=== PATIENT | female | born 1950 | race Caucasian/White ===

== ENCOUNTER 2017-01-16 13:03 | Day surgery (SDC) | payer OTHER ==
[2017-01-16] MEDS ORDERED: ASPIRIN EC 325 MG TAB PO ONE (13:12)
[2017-01-16] MEDS ORDERED: NS 1,000 ML IV ONE (13:12)
[2017-01-16] MEDS ORDERED: FAMOTIDINE 20 MG TAB PO ONE (13:12)
[2017-01-16] MEDS ORDERED: diphenhydrAMINE 25 MG CAP PO ONE (13:12)
[2017-01-16] MEDS ORDERED: DIAZEPAM 5 MG TAB PO ONE (13:12)
[2017-01-16] MEDS ORDERED: fentaNYL 100 MCG/2 ML INJ IVP ONE (13:14)
[2017-01-16] MEDS ORDERED: MIDAZOLAM 2 MG/2 ML VIAL IVP ONE (13:14)
[2017-01-16] MEDS ORDERED: BENZOCAINE UNIT DOSE SPRAY HURRICAINE MM ONE (13:14)
--- NOTE | 2017-01-16 13:37 | CPEKG ---
Heart Rate: 66 RR Interval: 909 P-R Interval: 208 QRSD Interval: 106 QT Interval: 440 QTC Interval: 461 P [place]: 68 QRS [place]: -19 T Wave [place]: 80 EKG Severity - ABNORMAL ECG - EKG Impression: SINUS RHYTHM EKG Impression: PROBABLE LVH WITH SECONDARY REPOL ABNRM Electronically Signed By: Leonidas Razo 16-Jan-2017 17:34:07
[2017-01-16 13:58] LABS: PLATELET COUNT 229 10^3/uL (150-400)
[2017-01-16 14:03] LABS: INR 1.03 (0.83-1.16); PROTIME(PATIENT) 13.4 SEC (12.0-15.0)
--- NOTE | 2017-01-16 14:21 | PDPROPOC ---
Sedation Plan of Care Sedation Plan of Care: vital signs stable, mental status noted, patient educated of risks, benefits, alternatives, patient can tolerate sedation ASA Classification: ASA 1 Planned drugs: fentanyl, midazolam Mallampati Score: Class 1 Mallampati Reference Image: Patient passed 3-3-2 rule?: Yes
--- NOTE | 2017-01-16 14:21 | PDHPUP ---
History & Physical Update H&P update statement: This history and physical update is based on an assessment of the patient which was completed after admission or registration (within 24 hours), but prior to the surgery/procedure. H&P update: H&P reviewed & patient examined, no change in patient's condition since H&P completed
[2017-01-16] MEDS ORDERED: ATROPINE SULFATE 1 MG/10 ML SYR ONE (14:37)
[2017-01-16] MEDS ORDERED: fentaNYL 100 MCG/2 ML INJ ONE ×2 (14:51→15:32)
[2017-01-16] MEDS ORDERED: LIDOCAINE 1% 300 MG/30 ML SDV ONE (15:32)
[2017-01-16] MEDS ORDERED: MIDAZOLAM 2 MG/2 ML VIAL ONE (15:33)
[2017-01-16] MEDS ORDERED: HEPARIN 10,000 UNIT/10 ML MDV ONE (15:33)
[2017-01-16] MEDS ORDERED: IOPAMIDOL (ISOVUE-370) 150 ML BTL IV ONE (15:33)
[2017-01-16] MEDS ORDERED: VERAPAMIL 5 MG/2 ML VIAL ONE (15:33)
[2017-01-16] MEDS ORDERED: ONDANSETRON 4 MG/2 ML VIAL IVP PRN (17:42)
[2017-01-16] MEDS ORDERED: ATROPINE SULFATE 1 MG/10 ML SYR IVP PRN (17:42)
--- NOTE | 2017-01-16 17:47 | PDDXCAT ---
Diagnostic Cath Note - . Date: 01/16/17 Speech Pathologist Assistant: Clara Indication: other (Hypertrophic cardiomyopathy. [place] [employer] functional class 3 exertional dyspnea. Plans for referral to cardiothoracic surgery for septal myectomy.) - Procedure Access: right wrist Procedure: left heart catheterization, coronary angiography, left ventriculogram , right heart catheterization - Materials Left Heart Cath size: 5F Left Heart Cath materials: JL3.5, JR4.0 Right Heart Cath size: 5F - Findings-Left Heart Catheterization LM: Normal. Trifurcate into the LAD, ramus intermedius and circumflex system. LAD: 3 diagonal branches. Normal. LCX: 2 small obtuse marginal branches. Normal. RCA: Dominant. The PDA and 2 posterolateral branches are identified. Normal. Ramus: Normal. LVEF: Greater than 70%. Normal wall motion. - Findings-Right Heart Catheterization RA: 7 mm Hg. RV: 45/2/9 mmHg. PA: 44/23/32 mmHg. PAOP: 18 mmHg AO: 131/63/92 mmHg. Left ventricular pressure 98/20 3/33 mmHg. CO: 6.1 liters/minute. CI: 3.32 liters/minute per meter squared. Complications: None. Estimated blood loss: <50ml Closure method: TR Band Assessment: 1. Angiographically normal epicardial coronary arteries. 2. Mildly elevated filling pressures with moderate pulmonary arterial hypertension. 3. Hyperdynamic left ventricular systolic function the patient with known hypertrophic cardiomyopathy. Plan: The patient will be referred to cardiothoracic surgery for consideration of septal myectomy. Intervention: None.
== END 2017-01-16 20:15 | disposition home or self-care (01) ==
LOC: FCATH 13:03
PROVIDERS: ATTEND Internal Medicine Cardiovascular Disease
DX: I42.2 Other hypertrophic cardiomyopathy (principal); R06.09 Other forms of dyspnea; I27.20 Pulmonary hypertension, unspecified; I10 Essential (primary) hypertension; E11.9 Type 2 diabetes mellitus without complications; Z82.49 Family history of ischemic heart disease and other diseases of the circulatory system; Z88.0 Allergy status to penicillin
CPT/HCPCS: 93005; 93460; C1769; J0461; J1644; J2250; J3010; Q9967

== ENCOUNTER → 2017-03-20 | Outpatient (CLI) | payer OTHER ==
[~2017-03-20] MED LIST: GADOBUTROL 10 ML VIAL IVP ONE
== END ==
LOC: FIMAGING 08:10
PROVIDERS: ATTEND Thoracic Surgery (Cardiothoracic Vascular Surgery)
DX: I42.1 Obstructive hypertrophic cardiomyopathy (principal)
CPT/HCPCS: 75561; A9585

== ENCOUNTER 2017-04-03 10:09 | Inpatient (IN) | payer OTHER ==
[~2017-04-03 10:09] MED LIST changes: +CITRATE DEXTROSE SOLN 500 ML BAG MISC ONE; -GADOBUTROL 10 ML VIAL IVP ONE; +INSULIN REGULAR HUMAN 100 UNIT in NS 100 ML IV ONE; +LIDOCAINE 1% 5 ML SDV ID PRN; +MANNITOL 25% 12.5 GM/50 ML VIAL IVP ONE; +NOREPINEPHRINE BITARTRATE 16 MG in NS 250 ML IV ONE; +PHENYLEPHRINE HCL 50 MG in NS 250 ML IV ONE; +SODIUM BICARBONATE 20 MEQ, LIDOCAINE 1% 10 ML in NORMOSOL-R 1,000 ML MISC ONE; +TRANEXAMIC ACID 1,000 MG in NS 100 ML IV ONE; +VANCOMYCIN 1 GM in NS 250 ML IV ONE; +VANCOMYCIN PHARMACY TO DOSE MISC ONE
--- NOTE | 2017-04-03 10:18 | PDGENHP ---
History and Physical - Chief Complaint HOCM, mod-severe MR - History of Present Illness 66F with known HOCM and mod-severe MR here for elective septal myectomy with possible MV repair vs. replacement. Pt c/o MARR. Denies CP or LE edema. History Information - Allergies/Home Medication List Allergies/Adverse Reactions: Penicillins Allergy (Mild, Verified 03/04/17 13:49) Rash antihistamines Allergy (Unknown, Uncoded 01/16/17 14:23) Home Medications: Diltiazem HCl [Cartia Xt] 120 mg PO BID 01/09/17 [Last Taken Unknown] Herbals/Supplements -Info Only 1 ea PO DAILY 01/09/17 [Last Taken Unknown] Metal Spray Operator Thyroid 90 mg PO DAILY@06 01/09/17 [Last Taken Unknown] glipiZIDE [Glipizide Xl] 5 mg PO DAILY 01/09/17 [Last Taken Unknown] metFORMIN SR [Glucophage XR 750 mg (*)] 750 mg PO DAILY 01/09/17 [Last Taken Unknown] Albuterol [Proventil Inhaler HFA (*)] 1 - 2 puffs IH DAILY PRN 02/27/17 [Last Taken Unknown] Carvedilol [Coreg (*)] 6.25 mg PO BIDMEAL 02/27/17 [Last Taken Unknown] Ranolazine [RANEXA 500mg (RX)] 500 mg PO BID 02/27/17 [Last Taken Unknown] I have personally reviewed and updated: medical history, social history, surgical history - Past Medical History asthma, diabetes type 2, hypertension - Surgical History Reports: thyroid surgery - Social History Smoking Status: Never smoked Alcohol Use: Occasionally Drug Use: None Review of Systems Review of Systems: ROS: 10pt was reviewed & negative except for what was stated in HPI & below Physical Exam Physical Exam: Constitutional: no apparent distress, appears nourished, not in pain, obese Eyes: anicteric sclera Ears, Nose, Mouth, Throat: moist mucous membranes, hearing normal, ears appear normal, no oral mucosal ulcers Cardiovascular: regular rate and rhythym Respiratory: no respiratory distress Gastrointestinal: soft, non-tender abdomen Skin: warm, normal color Musculoskeletal: full muscle strength Neurologic: AAOx3 Psychiatric: interacting appropriately, not anxious, not encephalopathic, thought process linear Lab Data & Imaging Review Patient ABO/Rh A NEGATIVE 04/02/17 12:25 Antibody Screen NEGATIVE 04/02/17 12:25 All labs pre-op labs reviewed without significant abnormalities. Imaging Review: 11/30/16 ECHO: mod asymmetric septal hypertrophy, mod-severe MR 01/16/17 LHC: normal coronary arteries, mod pulmonary HTN, EF > 70% 03/20/17 cardiac MRI: findings consistent with HOCM Visualized and Interpreted Chest x-ray results: Yes Chest X-Ray results: no infiltrate Visualized and Interpreted EKG results: Yes EKG Interpretation: Positive for: LVH, normal sinsus rhythm Assessment & Plan Assessment: 66F HOCM/mod-severe MR Plan: For septal myectomy, +/- MVR
[2017-04-03] MEDS ORDERED: ALBUMIN 5% 250 ML BOTTLE IV ONE (10:47)
[2017-04-03] MEDS ORDERED: CALCIUM CHLORIDE 1 GM/10 ML INJ ONE ×3 (10:47→21:00)
[2017-04-03] MEDS ORDERED: LIDOCAINE 2% 100 MG/5 ML SYR ONE ×2 (10:47→11:55)
[2017-04-03] MEDS ORDERED: MAGNESIUM SULFATE 1 GM/2 ML VIAL ONE (10:48)
[2017-04-03] MEDS ORDERED: HEPARIN 10,000 UNIT/10 ML MDV (1,000 UNIT/ML) ONE ×2 (10:48→10:51)
[2017-04-03] MEDS ORDERED: methylPREDNISolone SOD SUCC 1 GM/8 ML VIAL ONE (10:48)
[2017-04-03] MEDS ORDERED: CITRATE DEXTROSE SOLN 500 ML BAG ONE (10:48)
[2017-04-03] MEDS ORDERED: AMIODARONE HCL 150 MG/3 ML VIAL ONE ×2 (10:48→10:51)
[2017-04-03] MEDS ORDERED: PROTAMINE SULFATE 50 MG/5 ML VIAL IVP ONE (10:49)
[2017-04-03] MEDS ORDERED: MILRINONE/DEXTROSE/100 ML BAG IV ONE (10:50)
[2017-04-03] MEDS ORDERED: NA BICARBONATE 50 MEQ/50 ML VIAL ONE (10:50)
[2017-04-03] MEDS ORDERED: niCARdipine/NACL/200 ML BAG IV ONE (10:51)
[2017-04-03] MEDS ORDERED: DOPamine/DEXTROSE/250 ML BAG IV ONE (10:51)
[2017-04-03] MEDS ORDERED: ADENOSINE 6 MG/2 ML VIAL ONE (10:51)
[2017-04-03] MEDS ORDERED: ceFAZolin 1 GM VIAL ONE (10:52)
[2017-04-03] MEDS: MUPIROCIN 2% 22 GM OINT NS SCH ×2 (11:25→20:29)
[2017-04-03] MEDS ORDERED: MIDAZOLAM 2 MG/2 ML VIAL IVP ONE (11:45)
[2017-04-03] MEDS ORDERED: MIDAZOLAM 2 MG/2 ML VIAL ONE ×2 (11:50→11:54)
[2017-04-03] MEDS ORDERED: PROPOFOL/EMULSION 500 MG/50 ML BOTTLE IV ONE ×2 (11:54→14:40)
[2017-04-03] MEDS ORDERED: REMIFENTANIL HCL 1 MG VIAL ONE (11:54)
[2017-04-03] MEDS ORDERED: fentaNYL 100 MCG/2 ML INJ ONE (11:54)
[2017-04-03] MEDS ORDERED: PHENYLEPHRINE HCL 100 MCG/ML SYR ONE (11:55)
[2017-04-03] MEDS ORDERED: ROCURONIUM 100 MG/10 ML VIAL ONE ×2 (11:55)
[2017-04-03] MEDS ORDERED: DEXAMETHASONE 4 MG/ML VIAL ONE ×2 (11:55)
[2017-04-03] MEDS ORDERED: ONDANSETRON 4 MG/2 ML VIAL ONE (11:55)
[2017-04-03] MEDS ORDERED: fentaNYL 250 MCG/5 ML INJ ONE (12:41)
--- NOTE | 2017-04-03 13:21 | PDANEPAE ---
ANE History of Present Illness septal hypertrophy s/f septal resection and possible MV Repair ANE Past Medical History - Cardiovascular History Hx Hypertension: Yes Hx Arrhythmias: No Hx Chest Pain: No Hx Coronary Artery / Peripheral Vascular Disease: No Hx CHF / Valvular Disease: Yes Hx Palpitations: No Cardiovascular History Comment: hypertrophic cardiomyopathy. Exertional dyspnea. "fluttering" - Pulmonary History Hx COPD: No Hx Asthma/Reactive Airway Disease: No Hx Recent Upper Respiratory Infection: No Hx Oxygen in Use at Home: No Hx Sleep Apnea: No Sleep Apnea Screening Result - Last Documented: Positive Pulmonary History Comment: Albuterol inhaler-use this when difficulty breathing- re-fill 1x /yr - Neurologic History Hx Cerebrovascular Accident: No Hx Seizures: No Hx Dementia: No - Endocrine History Hx Diabetes: Yes Endocrine History Comment: NIDDM -type 2. Blood sugar runs higher than normal. - Renal History Hx Renal Disorders: No - Liver History Hx Hepatic Disorders: No - Neurological & Psychiatric Hx Hx Neurological and Psychiatric Disorders: Yes Neurological / Psychiatric History Comment: sees chiropractor 1x/wk. No problems with spine. - Cancer History Hx Cancer: No - Congenital Disorder History Hx Congenital Disorders: No - GI History Hx Gastrointestinal Disorders: No - Other Health History Other Health History: skin:eczema-hands, back of hairlin (neck) palms. - Chronic Pain History Chronic Pain: No - Surgical History Prior Surgeries: L arm fx 2014. cardiac cath 01-16-17. thyroidectomy age 14. uterine fibroid embolization ANE Review of Systems Review of Systems: - Exercise capacity METS (RN): 3 METS ANE Patient History - Allergies Allergies/Adverse Reactions: Penicillins Allergy (Mild, Verified 03/04/17 13:49) Rash ranolazine [From Ranexa] Allergy (Verified 04/03/17 11:37) DIZZINESS/NAUSEA antihistamines Allergy (Unknown, Uncoded 01/16/17 14:23) - Home Medications Home Medications: Diltiazem HCl [Cartia Xt] 120 mg PO BID 01/09/17 [Last Taken 04/02/17 22:00] Herbals/Supplements -Info Only 1 ea PO DAILY 01/09/17 [Last Taken 03/27/17] Tafe Lecturer Thyroid 90 mg PO DAILY@06 01/09/17 [Last Taken 04/02/17 08:00] glipiZIDE [Glipizide Xl] 5 mg PO DAILY 01/09/17 [Last Taken 04/02/17 10:00] metFORMIN SR [Glucophage XR 750 mg (*)] 750 mg PO DAILY 01/09/17 [Last Taken ] Albuterol [Proventil Inhaler HFA (*)] 1 - 2 puffs IH DAILY PRN 02/27/17 [Last Taken 04/01/17] Carvedilol [Coreg (*)] 6.25 mg PO BIDMEAL 02/27/17 [Last Taken 04/02/17 22:00] - NPO status NPO Status: no food or drink >8 hours NPO Since - Liquids (Date): 04/02/17 NPO Since - Liquids (Time): 22:30 NPO Since - Solids (Date): 04/02/17 NPO Since - Solids (Time): 19:00 - Anes Hx Anes Hx: slow to awaken from anesthesia (low BP as well) - Smoking Hx Smoking Status: Never smoked - Alcohol Use Alcohol Use: Occasionally ANE Labs/Vital Signs - Labs - CBC WBC: reviewed and okay - Vital Signs Blood Pressure: 166/85 Heart Rate: 64 Respiratory Rate: 20 O2 Sat (%): 96 Height: 166.37 cm Weight: 75.75 kg ANE Physical Exam - Airway Neck exam: FROM Mallampati Score: Class 2 Mouth exam: normal dental/mouth exam - Pulmonary Pulmonary: no respiratory distress - Cardiovascular Cardiovascular: regular rate and rhythym - ASA Status ASA Status: III ANE Anesthesia Plan Anesthesia Plan: general endotracheal anesthesia Lines/Monitors: arterial line (by CTS), central line, JENNY Urgent/Emergent Case: Tawanda lerma completed preop but documented later for safe timely pt care (done pre-op but didnt save, redoing it now)
[2017-04-03] MEDS ORDERED: MINERAL OIL 10 ML VIAL ONE (14:21)
[2017-04-03] MEDS ORDERED: DEXMEDETOMIDINE HCL 400 MCG in NS 100 ML IV SCH (14:30)
[2017-04-03] MEDS ORDERED: DEXMEDETOMIDINE/NS 4MCG/ML 50 ML BTL IV ONE (14:57)
[2017-04-03] MEDS ORDERED: SUGAMMADEX SODIUM 200 MG/2 ML VIAL IVP ONE (16:07)
[2017-04-03] MEDS ORDERED: METOCLOPRAMIDE 10 MG/2 ML VIAL IVP PRN (16:21)
[2017-04-03] MEDS ORDERED: ACETAMINOPHEN 650 MG SUPP PR PRN (16:21)
[2017-04-03] MEDS ORDERED: ALBUMIN 5% 250 ML IV PRN (16:21)
[2017-04-03] MEDS ORDERED: MAGNESIUM HYDROXIDE 30 ML UDCUP PO PRN (16:21)
[2017-04-03] MEDS ORDERED: MAGNESIUM SULF 2 GM/WATER 50 ML IV ONE (16:21)
[2017-04-03] MEDS ORDERED: MEPERIDINE 25 MG/ML SYR IVP PRN (16:21)
[2017-04-03] MEDS ORDERED: D50W 25 GM/50 ML SYR IVP PRN (16:21)
[2017-04-03] MEDS ORDERED: CEPACOL LOZENGE PO PRN (16:21)
[2017-04-03] MEDS ORDERED: ACETAMINOPHEN 325 MG TAB PO PRN (16:21)
[2017-04-03] MEDS ORDERED: BISACODYL 10 MG SUPP PR PRN (16:21)
[2017-04-03] MEDS ORDERED: POTASSIUM Cl (KCl) 50 ML IV PRN (16:21)
[2017-04-03] MEDS ORDERED: SODIUM CL NASAL 45 ML BTL EACHNARE PRN (16:21)
[2017-04-03] MEDS ORDERED: POLYETHYLENE GLYCOL 3350 17 GM PKT PO PRN (16:21)
[2017-04-03] MEDS ORDERED: ONDANSETRON 4 MG/2 ML VIAL IVP PRN (16:21)
[2017-04-03] MEDS ORDERED: LACTULOSE 20 GM/30 ML UDCUP PO PRN (16:21)
[2017-04-03] MEDS ORDERED: ONDANSETRON DISINTEGRATING 4 MG TAB PO PRN (16:21)
[2017-04-03] MEDS ORDERED: PANTOPRAZOLE SODIUM 40 MG VIAL IVP ONE (16:21)
[2017-04-03] MEDS ORDERED: IPRATROPIUM/ALBUTEROL 3 ML DEYVIAL IH PRN (16:28)
[2017-04-03] MEDS ORDERED: INSULIN REGULAR HUMAN 100 UNIT in NS 100 ML IV SCH (16:30)
[2017-04-03] MEDS ORDERED: NS 1,000 ML IV SCH (16:30)
[2017-04-03] MEDS: KETOROLAC 15 MG/1 ML SDV IVP SCH ×2 (17:25→23:23)
--- NOTE | 2017-04-03 19:09 | POSTANESTH ---
Post Anesthetic Evaluation Cardiovascular Status: Normal, Stable Respiratory Status: Normal, Stable Level of Consciousness/Mental Status: Can Participate in Eval Pain Control: Inadeq, Add Tx Required Nausea/Vomiting Control: Adequate, Prn Tx Ordered Complications Possibly Related to Anesthesia: None Noted
[2017-04-03] MEDS: fentaNYL 100 MCG/2 ML INJ IVP PRN ×2 (20:29→23:14)
[2017-04-03] MEDS: VANCOMYCIN HCL/NORMAL SALINE 250 ML IV SCH (20:29)
[2017-04-03] MEDS: niCARdipine/NACL 200 ML IV SCH (23:23)
[2017-04-03] MEDS: SENNOSIDES/DOCUSATE SODIUM TAB PO SCH (23:55)
[2017-04-04] MEDS: niCARdipine/NACL 200 ML IV SCH ×2 (03:25→08:40)
[2017-04-04] MEDS: fentaNYL 100 MCG/2 ML INJ IVP PRN (04:11)
[2017-04-04 05:11] LABS: PLATELET COUNT 143 10^3/uL (150-400)
[2017-04-04] MEDS: HEPARIN 5,000 UNIT/0.5 ML SYR SC SCH ×3 (05:54→22:15)
[2017-04-04] MEDS: KETOROLAC 15 MG/1 ML SDV IVP SCH ×3 (05:54→18:18)
[2017-04-04] MEDS: HYDROCODONE/APAP 5/325 TAB PO PRN ×4 (06:22→20:31)
--- NOTE | 2017-04-04 06:47 | SOAPPROG ---
SOAP Progress Note Assessment/Plan: POD #1: Transaortic septal myectomy, AtriClip MARITZA HOCM s/p septal myectomy - AL/FC out and CTs to bulb suction - PW to be connected set to VVI @ 50 - CCB/Beta-kim restarted - SCDs/heparin SQ for VT prophylaxis - PT for ambulation Acute blood loss anemia - Stable without the need for BP transfusions DM 2 (A1c 7.6) - Consistent carb diet ordered - Will transition insuln gtt to sliding scale with slow reintroduction of oral antihyperglycemics as tolerated Subjective: Painful when breathing. Objective: Vital Signs Temp Pulse Resp BP Pulse Ox 37.5 C 81 12 146/59 H 92 04/04/17 04:59 04/04/17 06:00 04/04/17 06:00 04/04/17 06:00 04/04/17 06:00 Laboratory Results 04/04/17 04:07 04/04/17 04:07 04/03/17 04/04/17 04/05/17 05:59 05:59 05:59 Intake Total 1246.1 Output Total 1548 105 Balance -301.9 -105 Physical Exam - Physical Exam General Appearance: WD/WN, alert, no apparent distress, obese EENT: No scleral icterus (R), No scleral icterus (L) Neck: normal inspection Respiratory: No respiratory distress Cardiac/Chest: regular rate, rhythm Abdomen: non-tender, soft, No distended Skin: normal color, warm/dry Extremities: No pedal edema Neuro/Psych: no motor/sensory deficits, alert, normal mood/affect, oriented x 3 ICD10 Worksheet Patient Problems: Problems Problem Status Onset Acute blood loss anemia Acute S/P ventricular septal myectomy Acute HOCM (hypertrophic obstructive cardiomyopathy) Chronic
[2017-04-04] MEDS ORDERED: traMADol 50 MG TAB PO PRN (07:01)
[2017-04-04] MEDS ORDERED: oxyCODONE IR 5 MG TAB PO PRN (07:01)
[2017-04-04] MEDS: ASPIRIN 81 MG CHEWABLE TAB PO SCH (08:40)
[2017-04-04] MEDS: PANTOPRAZOLE SODIUM 40 MG TAB PO SCH (08:40)
[2017-04-04] MEDS: SENNOSIDES/DOCUSATE SODIUM TAB PO SCH ×2 (08:41→20:31)
[2017-04-04] MEDS: MUPIROCIN 2% 22 GM OINT NS SCH ×2 (08:48→20:31)
[2017-04-04] MEDS: VANCOMYCIN HCL/NORMAL SALINE 250 ML IV SCH ×2 (08:51→20:31)
[2017-04-04] MEDS: CARVEDILOL 6.25 MG TAB PO SCH ×2 (10:37→18:13)
[2017-04-04] MEDS: DILTIAZEM CD 120 MG CAP PO SCH ×2 (10:38→20:32)
[2017-04-04] MEDS ORDERED: ALBUTEROL 60 PUFFS/8 GM MDI IH PRN (13:36)
--- NOTE | 2017-04-04 14:49 | ASMTCASEMG ---
Living Arrangements What is your living Answers: With Spouse arrangement? Who do you live with? Type Of Residence What kind of residence do Answers: House you live in? Discharge Plan Comments Coordination Status Comments Notes: Patient is a 66yo female who was admitted for elective septal myectomy with possible MV repair vs. replacement. PT/OT/Cardiac rehab eval have been ordered. Patient may likely d/c to outpatient cardiac rehab. CM will follow. Date Signed: 04/04/2017 02:48 PM Electronically Signed By:Kaylee Morton LCSW
[2017-04-04] MEDS: INSULIN LISPRO 100 UNIT/ML SC SCH (17:20)
--- NOTE | 2017-04-04 19:48 | GOP ---
[f rep st] OPERATIVE REPORT DATE OF OPERATION: 04/03/2017 SURGEON: Edgar Murillo DO ENZYME CHEMIST: Guanakito Turner MD, and Obdulio Pedraza PA-C. PREOPERATIVE DIAGNOSIS: Hypertrophic obstructive cardiomyopathy (HOCM) with severe mitral insufficie ncy. POSTOPERATIVE DIAGNOSIS: Hypertrophic obstructive cardiomyopathy (HOCM) with severe mitral insuffici ency. PROCEDURE PERFORMED: Extended septal myectomy and ligation of left atrial appendage. FINDINGS: Patient was noted to have a symptomatic outflow tract obstruction with severe mitral insuf ficiency due to HOCM and LATESHA. DESCRIPTION OF PROCEDURE: She was consented for surgery and brought to the operating room intubated. Monitoring lines were placed. Sternotomy was performed. She was heparinized and cannulated in the standard fashion with bicaval cannulae in case mitral valve repair was required. Intraoperative ech o confirmed severe mitral insufficiency with late posteriorly directed regurgitation and marked LATESHA, as well as marked outflow tract obstruction. Under sedation, at rest, a gradient of 60 mm was measur ed across the outflow tract with a needle placed in the apex and in the ascending aorta. Cardiopulmo nary bypass was begun. The heart was arrested with antegrade and retrograde cardioplegia. An LV sum p was placed through the right superior pulmonary vein for better visualization. I then performed a transverse aortotomy. Prior to that, we placed a 35 mm AtriClip across the base of the left atrial a ppendage because of the history of frequent AFib in these patients with decompensation. We then expo sed the septum; it was bulging quite prominently into the outflow tract. We then did an extended tri angular based septal myectomy, beginning at the midportion of the right coronary cusp and extending t o the apex and slightly laterally as we went lower on the septum. We did the same on the left side t oward the mitral valve, and then took a 1 cm segment in depth from approximately a cm below the aorti c valve, all the way down to the apex and the base of the papillary muscle. We then spent some time debriding any shaggy loose debris. By palpation, this was felt to be at least a centimeter or less, and no further muscle could be safely resected. We then copiously irrigated the chamber. The aortic valve was preserved. Aortotomy was closed. Cross-clamp was removed. Patient was de-aired and wean ed from bypass. At that point, we saw no evidence of chordal or valvular LATESHA. Mitral regurgitation was trace, and th e outflow tract gradient was measured at 5 mm, pacing at a rate of 100. There was a mobile piece of muscle at the base of the resection and, for that reason, we re-arrested the heart, opened the aortot aida, and re-explored the base, where there was a segment of muscle, which was attached well to the se ptum, but was quite mobile. This was removed, and additional layers of resection were performed with an 11 blade knife, narrowing the septum even further and extending the base. Papillary muscle attac hment was also noted, and this was resected from the septum. We then re-irrigated, closed the patien t in a standard fashion, de-aired her in the standard fashion, removed the cross-clamp in Trendelenbu rg and restored sinus rhythm. At that point, there was absolutely no significant mitral regurgitatio n. There was no LATESHA whatsoever. Dr. Agosto from Cardiology reviewed the echo and confirmed that there was an excellent outcome. Heparin was reversed with protamine. The cannulae were removed and oversewn. Four pacing wires and two mediastinal drains were placed. The thymic fat and pericardium were closed. The chest was close d in standard fashion. Patient was returned to ICU in stable condition. /[id number]/MODL
[2017-04-05] MEDS: KETOROLAC 15 MG/1 ML SDV IVP SCH ×5 (01:43→23:53)
[2017-04-05] MEDS: HYDROCODONE/APAP 5/325 TAB PO PRN ×3 (01:59→20:37)
[2017-04-05 03:55] LABS: PLATELET COUNT 126 10^3/uL (150-400)
[2017-04-05] MEDS ORDERED: THYROID 60 MG TAB PO SCH (06:00)
[2017-04-05] MEDS: HEPARIN 5,000 UNIT/0.5 ML SYR SC SCH ×3 (06:36→20:37)
--- NOTE | 2017-04-05 06:53 | SOAPPROG ---
SOAP Progress Note Assessment/Plan: POD #2: Extended transaortic septal myectomy, AtriClip MARITZA HOCM s/p extended septal myectomy - CTs and atrial wires to be removed today, ventricular wires to remain on VVI @ 50 - Continue CCB/Beta-kim - SCDs/heparin SQ for VT prophylaxis - PT for ambulation Secondary severe MR with LATESHA - Trace MR after myectomy with resolved LATESHA - Avoid diuresis Acute blood loss anemia - Stable without the need for BP transfusions DM 2 (A1c 7.6) - Consistent carb diet ordered - Continue ISS with gradual introduction of oral antihyperglycemics Subjective: Feels better this morning compared to last. Denies SOB. Pain improving. Objective: Vital Signs Temp Pulse Resp BP Pulse Ox 36.8 C 65 15 124/72 H 88 L 04/05/17 04:13 04/05/17 04:13 04/05/17 04:13 04/05/17 04:13 04/05/17 04:13 Laboratory Results 04/05/17 03:45 04/05/17 03:45 04/04/17 04/05/17 04/06/17 05:59 05:59 05:59 Intake Total 1246.1 1574.8 Output Total 1548 1010 Balance -301.9 564.8 Physical Exam - Physical Exam General Appearance: WD/WN, alert, no apparent distress EENT: No scleral icterus (R), No scleral icterus (L) Neck: normal inspection Respiratory: No respiratory distress Cardiac/Chest: regular rate, rhythm Abdomen: non-tender, soft, No distended Skin: normal color (f), warm/dry Extremities: pedal edema (trace) Neuro/Psych: no motor/sensory deficits, alert, normal mood/affect, oriented x 3 ICD10 Worksheet Patient Problems: Problems Problem Status Onset Acute blood loss anemia Acute S/P ventricular septal myectomy Acute HOCM (hypertrophic obstructive cardiomyopathy) Chronic
[2017-04-05] MEDS ORDERED: ALBUTEROL 200 PUFFS/18 GM MDI IH PRN (08:30)
[2017-04-05] MEDS: SENNOSIDES/DOCUSATE SODIUM TAB PO SCH ×2 (09:40→20:34)
[2017-04-05] MEDS: PANTOPRAZOLE SODIUM 40 MG TAB PO SCH (09:41)
[2017-04-05] MEDS: CARVEDILOL 6.25 MG TAB PO SCH ×2 (09:41→17:50)
[2017-04-05] MEDS: DILTIAZEM CD 120 MG CAP PO SCH ×2 (09:41→20:34)
[2017-04-05] MEDS: ASPIRIN 81 MG CHEWABLE TAB PO SCH (09:41)
[2017-04-05] MEDS: metFORMIN SR 750 MG TAB.SR PO SCH (09:47)
[2017-04-05] MEDS: MUPIROCIN 2% 22 GM OINT NS SCH ×2 (09:47→21:46)
[2017-04-05] MEDS: INSULIN LISPRO 100 UNIT/ML SC SCH ×3 (10:21→18:36)
--- NOTE | 2017-04-05 11:36 | ECHO ---
[email or web address] [address] Main: [phone] Fax: [email or web address] Echocardiogram Name: MELLY LAW MR#: [id number] Study Date: 04/05/2017 Study Time: 09:22 AM Date of : 1950 Age: 66 year(s) Height: 165.1 cm (65 in.) Weight: 83.92 kg (185 lb.) BSA: 1.91 m2 Gender: Female Examination: Echo Indication: S/P Septal myectomy Image Quality: Contrast: Requested by: Obdulio Pedraza BP: 127 mmHg/74 mmHg Heart Rate: Rhythm: Normal sinus rhythm Indication: S/P Septal myectomy Procedure Staff Unclaimed Property Officer: Yfn Whelan Reading Physician: Bong Smith Requesting Provider: Conclusions: Normal size left ventricle. Normal global systolic LV function. EF is 65 %. Diastolic dysfunction is present. . S/P septal myectomy, PW doppler was performed from the LV mid cavity, pre LVOT, valsalva and thru the LVOT with no increase of pressure gradient. Max PG of 5 mmHg.. Normal RV function. The left atrium is moderately to severely dilated. The right atrium is normal in size. There is no mitral valve regurgitation. The mitral valve leaflets appears thickened but open well. . No aortic valve stenosis is present. Measurements: Chambers Valvular Assessment AV/MV Valvular Assessment TV/PV Normal Normal Normal Name Value Range Name Value Range Name Value Range Ao Mary Jo (MM): 2.9 cm (2.2 cm-3.7 AV Vmax: 1.45 m/s (1 m/s-1.7 PV Vmax: 0.88 m/s (0.6 m/s-0.9 cm) m/s) m/s) IVSd (2D): 0.9 cm (0.6 cm-1.1 AV maxP mmHg ( - ) PV PGmax: 3 mmHg ( - ) cm) LVOT Vmax: 1.11 m/s (0.7 m/s-1.1 LVDd (2D): 4.4 cm (3.9 cm-5.3 m/s) cm) MV E Vmax: 0.88 m/s ( - ) LVDs (2D): 2.8 cm (2.1 cm-4 MV A Vmax: 0.68 m/s ( - ) cm) MV E/A: 1.29 ( - ) LVPWd (2D): 1.0 cm ( - ) LVEF (2D): 65 (>=54 %) Continued Measurements: Chambers Valvular Assessment AV/MV Patient: MELLY LAW Study Date: 04/05/2017 Page 1 of 2 09:22 AM Name Value Name Value LADs Lon.8 cm MV E/E' Septal: 20.50 LA Area: 19.2 cm2 MV E/E' Lateral: 17.70 LA Volume: 60 ml LA Volume Index: 31.4 ml/m2 Findings: Left Ventricle: Normal size left ventricle. Normal global systolic LV function. EF is 65 %. Diastolic dysfunction is present. . S/P septal myectomy, PW doppler was performed from the LV mid cavity, pre LVOT, valsalva and thru the LVOT with no increase of pressure gradient. Max PG of 5 mmHg.. Right Ventricle: Normal size right ventricle. Normal RV function. Left Atrium: The left atrium is moderately to severely dilated. Right Atrium: The right atrium is normal in size. Mitral Valve: Trivial mitral valve regurgitation. There is no mitral valve regurgitation. The mitral valve leaflets appears thickened but open well. . Aortic Valve: There is mild thickening of the aortic cusps. No aortic valve stenosis is present. Tricuspid Valve: The tricuspid valve is normal in appearance and function. Pulmonic Valve: The pulmonic valve is normal in appearance and function. Aorta: The aorta is normal. Pericardium: No pericardial effusion. (No Signature Object) Patient: MELLY LAW Study Date: 04/05/2017 Page 2 of 2 09:22 AM [id number]
[2017-04-06] MEDS: KETOROLAC 15 MG/1 ML SDV IVP SCH (05:41)
[2017-04-06] MEDS: HEPARIN 5,000 UNIT/0.5 ML SYR SC SCH ×3 (05:41→21:23)
[2017-04-06] MEDS: HYDROCODONE/APAP 5/325 TAB PO PRN ×4 (05:42→20:23)
[2017-04-06] MEDS: INSULIN LISPRO 100 UNIT/ML SC SCH ×3 (08:59→17:57)
[2017-04-06] MEDS: CARVEDILOL 6.25 MG TAB PO SCH ×2 (09:02→17:57)
[2017-04-06] MEDS: PANTOPRAZOLE SODIUM 40 MG TAB PO SCH (09:02)
[2017-04-06] MEDS: ASPIRIN 81 MG CHEWABLE TAB PO SCH (09:02)
[2017-04-06] MEDS: metFORMIN SR 750 MG TAB.SR PO SCH (09:04)
[2017-04-06] MEDS: DILTIAZEM CD 120 MG CAP PO SCH ×2 (09:04→20:18)
[2017-04-06] MEDS: SENNOSIDES/DOCUSATE SODIUM TAB PO SCH ×2 (09:05→20:18)
--- NOTE | 2017-04-06 10:07 | SOAPPROG ---
SOAP Progress Note Assessment/Plan: Assessment: POD#3 Transaortic septal myectomy, prophylatic AtriClip ligation MARITZA HOCM with mitral LATESHA and severe MR - LVOT gradient successfully reduced and mitral competence restored s/p extended septal myomectomy. Stable early postop course. No dysrhythmias or renal insuff. CTs and Awires out. CCB and BB resumed. Gentle diuresis planned. Acute expected blood loss anemia - Stable. No blood or blood products transfused. DM2, controlled - Postop hyperglycemia managed with low dose insulin gtt, transitioning to SSI and home oral antihyperglycemics. Plan: Vwires clipped. Begin lasix. Switch toradol to ibuprofen. Cont inc activity. Wean O2. Dispo - Anticipate home without services 04/06/17 10:05 Subjective: Improving stamina and appetite. Adequate analgesia. Objective: Vital Signs Temp Pulse Resp BP Pulse Ox 36.8 C 65 10 L 110/62 97 04/06/17 07:27 04/06/17 07:27 04/06/17 07:27 04/06/17 07:27 04/06/17 07:27 Laboratory Results 04/05/17 03:45 04/05/17 03:45 04/05/17 04/06/17 04/07/17 05:59 05:59 05:59 Intake Total 1574.8 1350 Output Total 1010 675 Balance 564.8 675 Holding SR. No hypotension. Positive fluid balance. +8 kg overall. Excellent sats on 2 lpm O2, likely could reduce to 1 lpm. CXR -> tiny rt pl eff, left basilar atelectasis. Physical Exam - Physical Exam General Appearance: alert, no apparent distress Respiratory: decreased breath sounds (left base, o/w CTA), other (Chest tube dressing CDI) Cardiac/Chest: regular rate, rhythm, other (Sternum grossly stable. Sternotomy CDI. Vwire resistance during removal and clipped at skin.) Abdomen: non-tender, soft Skin: warm/dry Extremities: swelling (1+ gen) ICD10 Worksheet Patient Problems: Problems Problem Status Onset Acute blood loss anemia Acute S/P ventricular septal myectomy Acute HOCM (hypertrophic obstructive cardiomyopathy) Chronic
[2017-04-06] MEDS: IBUPROFEN 600 MG TAB PO SCH ×3 (12:07→21:23)
[2017-04-06] MEDS: FUROSEMIDE 40 MG TAB PO SCH (15:24)
[2017-04-06] MEDS: POTASSIUM CL 10 MEQ TAB PO SCH ×2 (15:24→20:18)
[2017-04-07] MEDS: HYDROCODONE/APAP 5/325 TAB PO PRN ×2 (05:51→21:00)
[2017-04-07] MEDS: HEPARIN 5,000 UNIT/0.5 ML SYR SC SCH ×3 (05:51→21:01)
[2017-04-07] MEDS ORDERED: CARVEDILOL 6.25 MG TAB PO SCH (08:00)
--- NOTE | 2017-04-07 08:06 | SOAPPROG ---
SOAP Progress Note Assessment/Plan: Assessment: POD#5 Transaortic septal myectomy, prophylatic AtriClip ligation MARITZA HOCM with mitral LATESHA and severe MR - LVOT gradient successfully reduced and mitral competence restored s/p extended septal myomectomy. Stable early postop course. No dysrhythmias or renal insuff. CTs and TCPWs out. CCB and BB resumed. Active diuresis of moderate volume overload in progress. Acute expected blood loss anemia - Stable s/p 1u PRBC. DM2, controlled - Postop hyperglycemia managed with low dose insulin gtt and transitioned to SSI and home oral antihyperglycemics. Plan: Increase Coreg to 12.5 mg BID. Cont diltiazem 120 mg BID. Decr lasix to 40 mg daily. Cont inc activity as tolerated. Wean O2. Dispo - Anticipate home without services tomorrow. 04/07/17 08:03 04/07/17 10:09 Subjective: Improving mobility and stamina. Some diarrhea last night. Looking forward to home tomorrow. Objective: Vital Signs Temp Pulse Resp BP Pulse Ox 36.6 C 69 12 132/68 H 96 04/07/17 07:48 04/07/17 07:48 04/07/17 07:48 04/07/17 07:48 04/07/17 07:48 Laboratory Results 04/05/17 03:45 04/07/17 06:10 04/06/17 04/07/17 04/08/17 05:59 05:59 05:59 Intake Total 1350 1100 Output Total 675 2450 350 Balance 675 -1350 -350 Holding SR 60s-70s. Upward SBP creep. Almost off O2. Vigorous diuresis. Now +6 kg overall. Labs ok. - Pending Discharge Pending Discharge Within 24 Hours: Yes Pending Discharge Date: 04/08/17 Pending Discharge Time: 11:00 Physical Exam - Physical Exam General Appearance: alert, no apparent distress Respiratory: lungs clear Cardiac/Chest: regular rate, rhythm, other (Sternum grossly stable. Sternotomy and CT sites healing well.) Abdomen: non-tender, soft Skin: warm/dry Extremities: other (no visible edema) ICD10 Worksheet Patient Problems: Problems Problem Status Onset Acute blood loss anemia Acute S/P ventricular septal myectomy Acute HOCM (hypertrophic obstructive cardiomyopathy) Chronic
[2017-04-07] MEDS: metFORMIN SR 750 MG TAB.SR PO SCH (08:26)
[2017-04-07] MEDS: PANTOPRAZOLE SODIUM 40 MG TAB PO SCH (08:26)
[2017-04-07] MEDS: POTASSIUM CL 10 MEQ TAB PO SCH (08:26)
[2017-04-07] MEDS: glipiZIDE 5 MG TAB PO SCH (08:26)
[2017-04-07] MEDS: FUROSEMIDE 40 MG TAB PO SCH (08:27)
[2017-04-07] MEDS: DILTIAZEM CD 120 MG CAP PO SCH ×2 (08:27→21:00)
[2017-04-07] MEDS: IBUPROFEN 600 MG TAB PO SCH ×3 (08:28→21:00)
[2017-04-07] MEDS: INSULIN LISPRO 100 UNIT/ML SC SCH ×3 (08:29→17:45)
[2017-04-07] MEDS: ASPIRIN 81 MG CHEWABLE TAB PO SCH (08:30)
[2017-04-07] MEDS ORDERED: SENNOSIDES/DOCUSATE SODIUM TAB PO PRN (09:00)
--- NOTE | 2017-04-07 12:07 | ASMTCMCOM ---
CM Note CM Note Notes: 04/07/2017 Case Management Note Reviewed chart, spoke with PT. PT recommending home with family. to provide walker. Case Management d/c poc: Home with family support with follow up as directed. Case Management to follow. Date Signed: 04/07/2017 12:06 PM Electronically Signed By:Gail Araya RN
[2017-04-07] MEDS: CARVEDILOL 6.25 MG TAB PO SCH (17:43)
[2017-04-08] MEDS: HYDROCODONE/APAP 5/325 TAB PO PRN ×3 (05:30→21:15)
[2017-04-08] MEDS: HEPARIN 5,000 UNIT/0.5 ML SYR SC SCH ×3 (05:41→21:16)
--- NOTE | 2017-04-08 07:21 | SOAPPROG ---
SOAP Progress Note Assessment/Plan: POD #5: Transaortic extended septal myectomy, AtriClip MARITZA HOCM s/p extended septal myectomy with reduction in LVOT gradient - Continue BB/CCB - SCDs/heparin SQ for VT prophylaxis - PT for ambulation Secondary severe MR with LATESHA with trivial MR resolved LATESHA after septal myectomy - Continue BB/CCB Acute blood loss anemia - Stable s/p 1U PRBC transfusion DM 2 (A1c 7.6) - Continue consistent carb - Oral antihyperglycemics restarted with adequate BS control - ISS and BC checks stopped Disposition - Home today or tomorrow without home services Subjective: Feeling better today now that BP is back to normal. Not sure if ready to go home today. Objective: Vital Signs Temp Pulse Resp BP Pulse Ox 36.8 C 66 15 110/78 95 04/08/17 07:05 04/08/17 07:05 04/08/17 07:05 04/08/17 07:05 04/08/17 07:05 Laboratory Results 04/08/17 05:40 04/08/17 05:40 04/07/17 04/08/17 04/09/17 05:59 05:59 05:59 Intake Total 1100 700 Output Total 2450 2900 Balance -1350 -2200 Physical Exam - Physical Exam General Appearance: WD/WN, alert, no apparent distress EENT: No scleral icterus (R), No scleral icterus (L) Respiratory: No respiratory distress Cardiac/Chest: regular rate, rhythm Abdomen: non-tender, soft, No distended Skin: normal color, warm/dry Extremities: pedal edema (trace) Neuro/Psych: no motor/sensory deficits, alert, normal mood/affect, oriented x 3 ICD10 Worksheet Patient Problems: Problems Problem Status Onset Acute blood loss anemia Acute S/P ventricular septal myectomy Acute HOCM (hypertrophic obstructive cardiomyopathy) Chronic
[2017-04-08] MEDS: DILTIAZEM CD 120 MG CAP PO SCH ×2 (08:30→21:19)
[2017-04-08] MEDS: IBUPROFEN 600 MG TAB PO SCH ×3 (08:31→21:15)
[2017-04-08] MEDS: metFORMIN SR 750 MG TAB.SR PO SCH (08:32)
[2017-04-08] MEDS: CARVEDILOL 6.25 MG TAB PO SCH ×2 (08:32→18:14)
[2017-04-08] MEDS: glipiZIDE 5 MG TAB PO SCH (08:32)
[2017-04-08] MEDS: ASPIRIN 81 MG CHEWABLE TAB PO SCH (08:32)
[2017-04-08] MEDS ORDERED: FUROSEMIDE 40 MG TAB PO SCH (09:00)
[2017-04-09] MEDS: HYDROCODONE/APAP 5/325 TAB PO PRN (06:09)
[2017-04-09] MEDS: HEPARIN 5,000 UNIT/0.5 ML SYR SC SCH ×2 (06:09→14:25)
--- NOTE | 2017-04-09 07:55 | SOAPPROG ---
SOAP Progress Note Assessment/Plan: Assessment: POD#7 Transaortic septal myectomy, prophylatic AtriClip ligation MARITZA HOCM with mitral LATESHA and severe MR - LVOT gradient successfully reduced and mitral competence restored s/p extended septal myomectomy. Stable early postop course. No dysrhythmias or renal insuff. CTs and TCPWs out. CCB and BB resumed. Active diuresis of moderate volume overload in progress. Acute expected blood loss anemia - Stable s/p 1u PRBC. DM2, controlled - Postop hyperglycemia managed with low dose insulin gtt and transitioned to SSI and home oral antihyperglycemics. Plan: Decrease lasix to 20 mg daily. Wean O2. Dispo - Home without services today. Instructions re diet, meds, activity, wound care and followup to be reviewed. 04/09/17 07:51 Subjective: Feels well. Ready for home. Objective: Vital Signs Temp Pulse Resp BP Pulse Ox 36.8 C 67 18 100/68 96 04/09/17 07:22 04/09/17 07:22 04/09/17 07:22 04/09/17 07:22 04/09/17 07:22 Laboratory Results 04/08/17 05:40 04/08/17 05:40 04/08/17 04/09/17 04/10/17 05:59 05:59 05:59 Intake Total 700 950 Output Total 2900 1850 100 Balance -2200 -900 -100 Cardioresp status stable. Off O2. Adequate fluid balance. Physical Exam - Physical Exam General Appearance: alert, no apparent distress Respiratory: lungs clear (grossly) Cardiac/Chest: regular rate, rhythm, other (Sternum grossly stable. Sternotomy and CT sites CDI.) Abdomen: non-tender, soft Skin: warm/dry Extremities: other (no visible edema) ICD10 Worksheet Patient Problems: Problems Problem Status Onset Acute blood loss anemia Acute S/P ventricular septal myectomy Acute HOCM (hypertrophic obstructive cardiomyopathy) Chronic
[2017-04-09] MEDS ORDERED: IBUPROFEN 600 MG TAB PO PRN (08:00)
[2017-04-09] MEDS: ASPIRIN 81 MG CHEWABLE TAB PO SCH (08:43)
[2017-04-09] MEDS: glipiZIDE 5 MG TAB PO SCH (08:43)
[2017-04-09] MEDS: metFORMIN SR 750 MG TAB.SR PO SCH (08:43)
[2017-04-09] MEDS: PANTOPRAZOLE SODIUM 40 MG TAB PO SCH (08:44)
[2017-04-09] MEDS: CARVEDILOL 6.25 MG TAB PO SCH (08:44)
[2017-04-09] MEDS: DILTIAZEM CD 120 MG CAP PO SCH (08:44)
[2017-04-09] MEDS ORDERED: FUROSEMIDE 20 MG TAB PO SCH (09:00)
--- NOTE | 2017-04-09 09:43 | PDDCSUM ---
Discharge Summary Discharge Summary: DATE OF ADMISSION: 04/03/17 DATE OF DISCHARGE: 04/09/17 DISPOSITION: Home, self-care PRINCIPAL ADMISSION DIAGNOSES: 1. Hypertrophic cardiomyopathy with asymmetric septal hypertrophy 2. Systolic anterior motion of the mitral valve with severe mitral regurgitation PRINCIPAL DISCHARGE DIAGNOSES: 1. Status post transaortic septal myomectomy 2. Status post prophylactic clip ligation of the left atrial appendage 3. Acute expected blood loss anemia HISTORY OF PRESENT ILLNESS: 66 yo female with NYHA class II exertional dyspnea, HOCM, pronounced LVOT gradient, systolic anterior motion of the mitral valve, and severe MR admitted for elective septal myomectomy +/- mitral valve repair. OTHER PAST MEDICAL HISTORY: Asthma, moderate PHTN, HTN, Hypothyroidism, Diabetes mellitus type II MEDICATIONS ON ADMISSION: Coreg 6.25 mg BID, Diltiazem ER 120 mg BID, Thyroid supplement 90 mg daily, Glipizide XL 5 mg daily, Metformin SR 750 mg daily, Proventil 60 puffs/ 8 gm MDI 1-2 puffs IH daily prn. ALLERGIES/SENSITIVITIES: Penicillins causing a rash, Ranexa causing nausea and dizziness, antihistamines causing jitteriness CONSULTANTS: none PROCEDURES/IMAGIN/17 (Lidia): Transaortic septal myomectomy. Prophylactic AtriClip ligation of the left atrial appendage. 04/05 (Luis): Transthoracic echocardiogram ABBREVIATED HOSPITAL COURSE BY ACTIVE PROBLEM LIST: 1. HOCM with mitral LATESHA and severe MR - LVOT gradient successfully reduced and mitral competence restored s/p extended septal myomectomy. Stable early postop course. No dysrhythmias or renal insuff. CCB and BB resumed. Moderate volume overload gradually diuresed. 2. Acute expected blood loss anemia - Stable s/p 1u PRBC. 3. DM2, controlled - Postop hyperglycemia managed with low dose insulin gtt and transitioned to SSI and home OHAs. DISCHARGE CLINICAL INFORMATION: Sternum grossly stable. Sternotomy CDI, sutured, +Dermabond. HR 60s-70s. SBP 100-120s. SpO2 92% RA. Wt 3.7 kg above admission at 75.7 kilos. WBC 7.06, Hgb 8.7, HCT 26.5, Plt 145, Na 140, K 4.4, Cr 0.9 DISCHARGE MEDICATIONS: As on admission with the following NEW prescriptions: 1. Lasix 20 mg daily until back to baseline weight and no swelling. 2. [place] 5/325 one-half to two tabs q 4-6h prn incisional pain. OTC: ASA 81 mg daily. FOLLOW UP APPOINTMENTS: 1. CV surgery: with Dr Murillo at [facility] on 04/12 at 10:00 am. 2. Cardiology: with Dr Elizabeth at [facility] within 4-6 weeks. Appointment to be established during surgical visit. FOLLOW UP TESTING: CXR prior to 2nd surgical appointment.
[2017-04-09 14:24] VITALS: BP 97/66; PULSE 81; RESP 20; TEMP 98.2; O2SAT 91
--- NOTE | 2017-04-09 17:26 | ASDISCHSUM ---
Discharge Information Plan Status:Home with No Needs Medically Cleared to Leave:04/08/2017 Discharge Date:04/09/2017 02:55 PM CM D/C Disposition:Home, Routine, Self-Care ADT D/C Disposition:Home, Routine, Self-Care Projected Discharge Date:04/09/2017 02:55 PM Transportation at D/C: Discharge Delay Reason: Follow-Up Date:04/09/2017 02:55 PM Discharge Slot: Final Diagnosis: Placement Information Patient Contact Information Contact Name:FRITZ Relationship: Address:[address] [place] [address] City:[facility] Phone: [facility]/Zip Code:[place] [address] Email: Financial Information Financial Class:Medicare Advantage Plans Primary Plan Desc:[facility] [employer] [facility] Primary Plan Number:[id number] Secondary Plan Desc: Secondary Plan Number: Assessment Information [facility] Initial CM Assessment Living Arrangements What is your living Answers: With Spouse arrangement? Who do you live with? Type Of Residence What kind of residence do Answers: House you live in? Discharge Plan Comments Coordination Status Comments Notes: Patient is a 66yo female who was admitted for elective septal myectomy with possible MV repair vs. replacement. PT/OT/Cardiac rehab eval have been ordered. Patient may likely d/c to outpatient cardiac rehab. CM will follow. Date Signed: 04/04/2017 02:48 PM Electronically Signed By:Kaylee Morton LCSW [facility] CM Progress Note CM Note CM Note Notes: 04/07/2017 Case Management Note Reviewed chart, spoke with PT. PT recommending home with family. to provide walker. Case Management d/c poc: Home with family support with follow up as directed. Case Management to follow. Date Signed: 04/07/2017 12:06 PM Electronically Signed By:Gail Araya RN Intervention Information Intervention Type:*IM-Signed Date of Service:04/09/2017 10:32 AM Patient Type:Inpatient Staff Member:Laura Weber Hours: Discipline: Severity: Comment:
== END 2017-04-09 14:55 | disposition home or self-care (01) | DRG 229 ==
LOC: F2W 10:09 → F2N 10:31 → F2W 04-05 03:54
PROVIDERS: ADMIT Thoracic Surgery (Cardiothoracic Vascular Surgery); ATTEND Thoracic Surgery (Cardiothoracic Vascular Surgery)
PROC: 02L70CK Occlusion of Left Atrial Appendage with Extraluminal Device, Open Approach (ICD-10-PCS; principal; 2017-04-03 12:15)
PROC: 5A1221Z Performance of Cardiac Output, Continuous (ICD-10-PCS; principal; 2017-04-03 12:15)
PROC: 02Q Heart and Great Vessels, Repair (ICD-10-PCS; principal; 2017-04-03 12:15)
DX: I42.1 Obstructive hypertrophic cardiomyopathy (principal); I34.0 Nonrheumatic mitral (valve) insufficiency; D62 Acute posthemorrhagic anemia; E11.9 Type 2 diabetes mellitus without complications; I10 Essential (primary) hypertension; E03.9 Hypothyroidism, unspecified; J45.909 Unspecified asthma, uncomplicated
CPT/HCPCS: 82947-QW; 97116-GP; 97161-GP; 97165-GO; 97530-GP; 97535-GO; G8978-GP-CJ; G8979-GP-CI; G8980-GP-CI; G8987-GO-CK; G8988-GO-CI; G8989-GO-CI; J0153; J0282; J0690; J1100; J1265; J1644; J1815; J1885; J2001; J2150; J2250; J2260; J2370; J2405; J2704; J2720; J2930; J3010; J3370; J7060; P9016; P9041

== ENCOUNTER → 2017-04-16 | Outpatient (CLI) | payer OTHER | LOC: FIMAGING 12:47 | PROVIDERS: ATTEND Thoracic Surgery (Cardiothoracic Vascular Surgery) | DX: J90 Pleural effusion, not elsewhere classified (principal) ==

== ENCOUNTER → 2017-04-23 | Outpatient (CLI) | payer OTHER | LOC: FIMAGING 10:57 | PROVIDERS: ATTEND Thoracic Surgery (Cardiothoracic Vascular Surgery) | DX: Z48.812 Encounter for surgical aftercare following surgery on the circulatory system (principal); I42.1 Obstructive hypertrophic cardiomyopathy ==

== ENCOUNTER → 2017-10-09 | Outpatient (CLI) | payer OTHER | LOC: FIMAGING 10:58 | PROVIDERS: ATTEND Family Medicine | DX: Z12.31 Encounter for screening mammogram for malignant neoplasm of breast (principal) ==